=== PATIENT | female | born 1950 | race Two or more races ===

== ENCOUNTER 2019-06-26 12:25 | Emergency (ER) | payer OTHER ==
[~2019-06-26] VITALS: Ht 165.1 cm; Wt 63.5 kg
[2019-06-26] MEDS ORDERED: ZITHROMAX TRI-500 MG (12:32)
== END 2019-06-26 13:13 | disposition home or self-care (01) ==
LOC: ER 12:25
DX: S05.11XA Contusion of eyeball and orbital tissues, right eye, initial encounter (principal); H11.421 Conjunctival edema, right eye; W22.8XXA Striking against or struck by other objects, initial encounter; Y93.89 Activity, other specified; Y92.018 Other place in single-family (private) house as the place of occurrence of the external cause; Y99.8 Other external cause status

== ENCOUNTER 2023-10-16 13:44 | Emergency (ER) | payer OTHER ==
[~2023-10-16] VITALS: Ht 165.1 cm; Wt 63.5 kg
[~2023-10-16 13:44] MED LIST: AMOX-CLAV 875-1 EAC1 PO; FLONASE16 GM NASAL; LIPITOR40 M1 PO; PROMETRIUM200 MG; TUSSIN DM SYRU118 ML PO; ZITHROMAX TRI-500 MG
[2023-10-16] MEDS ORDERED: HYDROCODONE/CHLORPHEN P-STIREX 5 ML ML PO STA (15:15)
[2023-10-16] MEDS ORDERED: CEFTRIAXONE SODIUM 1,000 MG VIAL IM STA (15:15)
[2023-10-16] MEDS ORDERED: CEFTRIAXONE SODIUM 1,000 MG VIAL ONE (15:29)
[2023-10-16] MEDS ORDERED: IPRATROPIUM BROMIDE 0.5 MG/2.5 ML AMPUL.NEB IH SCH (15:30)
[2023-10-16] MEDS ORDERED: ALBUTEROL SULFATE 3 ML/2.5 MG AMPUL.NEB IH SCH (15:30)
[2023-10-16] MEDS ORDERED: LIDOCAINE HCL 1% 10ML VIAL ONE (15:30)
[2023-10-16] MEDS ORDERED: IPRATROPIUM/ALBUTEROL SULFATE 3 ML AMPUL.NEB IH ONE (15:55)
== END 2023-10-16 16:56 | disposition home or self-care (01) ==
LOC: ER 13:46
DX: R53.81 Other malaise (principal); J45.991 Cough variant asthma; J06.9 Acute upper respiratory infection, unspecified
CPT/HCPCS: 94640; 96372; 99282; J0696

== ENCOUNTER 2024-11-27 05:55 | Inpatient (IN) | payer OTHER ==
[~2024-11-27] VITALS: Ht 165.1 cm; Wt 63.5 kg
--- NOTE | 2024-11-27 06:01 | NUR ---
PACIENTE FEMENINA ALERTA Y ORIENTADA X3, REFIERE VOMITOS, DIARREAS Y DOLOR ABDOMINAL.
[2024-11-27] MEDS ORDERED: 0.9 % SODIUM CHLORIDE 1,000 ML IV STA (07:05)
[2024-11-27] MEDS ORDERED: FAMOtidine 10 MG/ML (4ML VIAL) IV PUSH STA (07:06)
[2024-11-27] MEDS ORDERED: ONDANSETRON HCL 2 MG/ML VIAL IV STA (07:06)
[2024-11-27] MEDS ORDERED: HYOSCYAMINE SULFATE 0.125 MG TAB.SUBL SL ONE (07:15)
--- NOTE | 2024-11-27 07:20 | NUR ---
PACIENTE EVALUADA POR QUIEN ORDENA TRATAMIENTO MEDICO, RN CANCEL LE ORIENTA A PACIENTE SOBRE EL MISMO Y REFIERE ENTENDER, LE COLECTA MUESTRAS Y LE CANALIZA BAJO MEDIDAS ASEPTICAS. LE HACE ENTREGA DE ENVASE PARA COLECTA DE FECAL. SE LE ADMINISTRAN MEDICAMENTOS RILEY ORDEN Y BAJO MEDIDAS ASEPTICAS. PACIENTE TOLERA Y SE MANTIENE BAJO OBSERVACION POR CAMBIOS EN MEEKS CONDICION. PENDIENTE ESTUDIO DE MERYL X.
[2024-11-27 07:30] LABS: BASO % 0.1 % (0.1-1.2); EOS # 0.01 (0.04-0.54); EOS % 0.1 % (0.7-7.0); LYMPH # 0.61 (1.18-3.74); LYMPH % 7.2 % (19.3-53.1); MEAN PLATELET VOLUME 9.50 fl (9.4-12.4); MONO # 0.35 (0.24-0.82); MONO % 4.1 % (4.7-12.5); NEUT # 7.44 (1.56-6.13); NEUT % 88.1 % (34.0-71.1); RED CELL DISTRIBUTION WIDTH 12.4 % (11.6-14.4)
[2024-11-27 08:09] LABS: ALT/SGPT 29.0 U/L (12-78); AST/SGOT 17.0 U/L (15-37); BILIRUBIN TOTAL 0.85 mg/dL (0.3-1.2); BUN CREA RATIO 22.0 (7.0-25.0); CREATININE SERUM 0.5 mg/dL (0.55-1.02); GFR 120.61; GLOBULINA 2.5 G/DL (2.4-3.5); GLUCOSE FASTING 117.0 mg/dL (65-100); OSMOLALITY SERUM 285.0 MOSM/KG (275-295)
--- NOTE | 2024-11-27 08:56 | NUR ---
MEDICO DE TURNO RE-EVALUA PACIENTE. SE COORDINA CT.
[2024-11-27] MEDS ORDERED: PIPERACILLIN/TAZOBACTAM SODIUM 3.375 GM in 0.9 % SODIUM CHLORIDE 100 ML IV SCH ×2 (12:00→18:00)
[2024-11-27] MEDS ORDERED: KETOROLAC TROMETHAMINE 30 MG VIAL IV ONE (12:00)
[2024-11-27] MEDS ORDERED: FAMOTIDINE/PF 20 MG/2 ML VIAL IV SCH (12:51)
[2024-11-27] MEDS ORDERED: SODIUM CHLORIDE 0.45 % 1,000 ML IV SCH (13:00)
[2024-11-27] MEDS ORDERED: KETOROLAC TROMETHAMINE 30 MG VIAL IV PRN (14:00)
[2024-11-27] MEDS ORDERED: ONDANSETRON HCL 4 MG in 0.9 % SODIUM CHLORIDE 50 ML IV PRN (14:00)
[2024-11-27 14:51] LABS: COVID-19 AG NEGATIVE (NEGATIVE)
[2024-11-27 15:03] LABS: URINE APPEARANCE Clear; URINE BILIRRUBIN Negative (NEGATIVE); URINE BLOOD Negative; URINE COLOR Yellow; URINE GLUCOSE Negative (NEGATIVE); URINE KETONE Negative (NEGATIVE); URINE LEUKOCYTE Trace; URINE NITRATE Negative; URINE PROTEIN Trace (NEGATIVE); URINE UROBILINOGEN 0.2 E.U./dl
[2024-11-27 15:07] LABS: URINE BACTERIA 4373.5 uL (0.0-1933); URINE EPITHELIAL CELLS 35.0 uL (0.0-38.8); URINE RBC 19.3 uL (0.0-20.8); URINE WBC 49.3 uL (0.0-23.2)
[2024-11-27 15:42] LABS: URINE CAST 0.43 uL (0.0-1.40)
[2024-11-27 15:43] LABS: TYPE CELLS SQUAMOUS; URINE MUCUS SCANT
[2024-11-27 17:36] VITALS: BP 129/83; O2SAT 99
[2024-11-27 18:00] LABS: INR 0.95
[2024-11-27 18:03] VITALS: BP 154/90; O2SAT 96
[2024-11-28 00:30] VITALS: BP 105/71; O2SAT 100
[2024-11-28 08:00] VITALS: BP 106/71; O2SAT 98
[2024-11-28] MEDS ORDERED: LIDOCAINE HCL 1%/EPINEPHRINE 20ML VIAL IJ ONE (11:00)
[2024-11-28] MEDS ORDERED: BUPIVACAINE HCL 30 ML VIAL IJ ONE (11:00)
[2024-11-28] MEDS ORDERED: SUGAMMADEX SODIUM 200 MG/2 ML VIAL IV ONE (12:15)
[2024-11-28] MEDS ORDERED: SIMETHICONE 125 MG CAPSULE PO SCH (13:00)
[2024-11-28] MEDS ORDERED: MORPHINE SULFATE 4 MG/ML VIAL IV ONE ×2 (13:13→13:15)
[2024-11-28 13:37] VITALS: BP 128/86; O2SAT 95
[2024-11-28] MEDS ORDERED: SUCRALFATE 1 G TABLET PO SCH (17:00)
[2024-11-28 17:30] VITALS: BP 131/80; O2SAT 96
[2024-11-29 00:54] VITALS: BP 125/65; O2SAT 100
[2024-11-29 08:15] LABS: BASO % 0.2 % (0.1-1.2); EOS # 0.05 (0.04-0.54); EOS % 1.0 % (0.7-7.0); LYMPH # 0.99 (1.18-3.74); LYMPH % 19.5 % (19.3-53.1); MEAN PLATELET VOLUME 10.00 fl (9.4-12.4); MONO # 0.22 (0.24-0.82); MONO % 4.3 % (4.7-12.5); NEUT # 3.79 (1.56-6.13); NEUT % 74.8 % (34.0-71.1); RED CELL DISTRIBUTION WIDTH 12.3 % (11.6-14.4)
[2024-11-29 08:33] VITALS: BP 136/80; O2SAT 98
[2024-11-29 08:44] LABS: ALT/SGPT 18.0 U/L (12-78); AST/SGOT 15.0 U/L (15-37); BILIRUBIN TOTAL 0.84 mg/dL (0.3-1.2); BUN CREA RATIO 13.0 (7.0-25.0); CREATININE SERUM 0.48 mg/dL (0.55-1.02); GFR 126.42; GLOBULINA 2.0 G/DL (2.4-3.5); GLUCOSE FASTING 77.0 mg/dL (65-100); OSMOLALITY SERUM 285.0 MOSM/KG (275-295)
[2024-11-29] MEDS ORDERED: KETO10TA2 PO (13:31)
[2024-11-29] MEDS ORDERED: SIMETHICONE125 M1 PO (13:32)
== END 2024-11-29 14:44 | disposition home or self-care (01) | DRG 399 ==
LOC: ER 05:55 → SEC-K 14:14 → SURH 14:14
PROVIDERS: Surgery; ADMIT Internal Medicine; ATTEND Internal Medicine
PROC: BW21YZZ Computerized Tomography (CT Scan) of Abdomen and Pelvis using Other Contrast (ICD-10-PCS; 2024-11-27)
PROC: 0DTJ4ZZ Resection of Appendix, Percutaneous Endoscopic Approach (ICD-10-PCS; principal; 2024-11-28 07:00)
DX: K35.30 Acute appendicitis with localized peritonitis, without perforation or gangrene (principal); I10 Essential (primary) hypertension; E78.5 Hyperlipidemia, unspecified